=== PATIENT | female | born 1950 | race Caucasian/White ===

== ENCOUNTER → 2023-08-22 | Outpatient (CLI) | payer MEDICARE, OTHER ==
[~2023-08-22] MED LIST: ATORVASTATIN CA40 MG PO; CALCIUM 600 MG1 EACH PO; CARBIDOPA/LEVODOPA PO; LOSARTAN POTASS25 MG PO; MYSOLINE50 M1 PO; NS 500 ML IV ONE; OMEGA-3 FISH1000 MG PO; PREGABALIN50 MG PO; PROPRANOLOL HCL60 M3 PO; SOLIFENACIN SUC10 MG PO; STIOLTO RESPIMAT4 GM IH; SYNTHROID0.05 MG PO; TRULICITY1.5 MG/0.5 SC; VITAMIN D325 MC2 PO
[2023-08-22 15:12] LABS: HEMATOCRIT 53.5 % (37.0-47.0); HEMOGLOBIN 17.6 g/dL (12.5-16.0); MEAN PLATELET VOLUME 11.3 fl (7.4-10.4); RED BLOOD COUNT 6.07 M/mm3 (4.10-5.30); RED CELL DISTRIBUTION WIDTH 15.9 % (11.5-14.5); WHITE BLOOD COUNT 9.4 K/mm3 (4.8-10.8)
== END ==
LOC: LAB 14:34
PROVIDERS: Internal Medicine
DX: D45 Polycythemia vera (principal)

== ENCOUNTER 2023-08-27 13:54 | Outpatient (RCR) | payer MEDICARE, OTHER ==
[2023-08-22 15:00] VITALS: BP 138/885
[2023-08-22 16:25] VITALS: BP 126/72
[~2023-08-27] VITALS: Ht 167.6 cm; Wt 122.7 kg
[2023-08-27 14:42] VITALS: BP 127/78
[2023-08-27 16:00] VITALS: BP 106/68
== END 2023-08-29 | disposition home or self-care (01) ==
LOC: AMSURD
DX: D45 Polycythemia vera (principal)
CPT/HCPCS: J7040

== ENCOUNTER → 2023-08-27 | Outpatient (CLI) | payer MEDICARE, OTHER ==
[~2023-08-27] MED LIST changes: -NS 500 ML IV ONE; +NS 500 ML IV SCH
[2023-08-27 14:29] LABS: HEMOGLOBIN 16.5 g/dL (12.5-16.0); MEAN PLATELET VOLUME 11.2 fl (7.4-10.4); RED BLOOD COUNT 5.69 M/mm3 (4.10-5.30); RED CELL DISTRIBUTION WIDTH 15.6 % (11.5-14.5); WHITE BLOOD COUNT 11.9 K/mm3 (4.8-10.8)
== END ==
LOC: LAB 13:57 → AMSURD 13:57
PROVIDERS: Internal Medicine
DX: D45 Polycythemia vera (principal)

== ENCOUNTER → 2023-09-12 | Outpatient (CLI) | payer MEDICARE, OTHER ==
[~2023-09-12] MED LIST changes: -NS 500 ML IV SCH
[2023-09-12 10:49] LABS: HEMATOCRIT 50.5 % (37.0-47.0); HEMOGLOBIN 16.2 g/dL (12.5-16.0); MEAN PLATELET VOLUME 11.2 fl (7.4-10.4); RED BLOOD COUNT 5.67 M/mm3 (4.10-5.30); RED CELL DISTRIBUTION WIDTH 14.8 % (11.5-14.5); WHITE BLOOD COUNT 10.9 K/mm3 (4.8-10.8)
== END ==
LOC: LAB 10:09
PROVIDERS: Internal Medicine
DX: D45 Polycythemia vera (principal)

== ENCOUNTER → 2023-09-19 | Outpatient (CLI) | payer MEDICARE, OTHER ==
[2023-09-19 14:14] LABS: HEMOGLOBIN 15.7 g/dL (12.5-16.0); MEAN PLATELET VOLUME 11.5 fl (7.4-10.4); RED BLOOD COUNT 5.59 M/mm3 (4.10-5.30); RED CELL DISTRIBUTION WIDTH 14.5 % (11.5-14.5)
== END ==
LOC: LAB 13:35
PROVIDERS: Internal Medicine
DX: D45 Polycythemia vera (principal)

== ENCOUNTER → 2023-10-10 | Outpatient (CLI) | payer MEDICARE, OTHER ==
[~2023-10-10] MED LIST changes: +HYDROXYURE500 MG/CAP PO
[2023-10-10 10:24] LABS: HEMATOCRIT 40.2 % (37.0-47.0); HEMOGLOBIN 12.7 g/dL (12.5-16.0); MEAN PLATELET VOLUME 10.9 fl (7.4-10.4); RED BLOOD COUNT 4.66 M/mm3 (4.10-5.30); RED CELL DISTRIBUTION WIDTH 14.5 % (11.5-14.5); WHITE BLOOD COUNT 9.8 K/mm3 (4.8-10.8)
== END ==
LOC: LAB 09:52
PROVIDERS: Internal Medicine
DX: D45 Polycythemia vera (principal)

== ENCOUNTER → 2024-04-20 | Outpatient (CLI) | payer MEDICARE, OTHER ==
[~2024-04-20] VITALS: Ht 167.6 cm; Wt 122.7 kg
[~2024-04-20] MED LIST changes: +ADULT ASPIRIN R81 MG PO; +EDECRIN25 MG PO; +GENTLE LAXATIVE5 M1 PO; +NS 500 ML IV SCH; +RT ALBUTEROL CC18 GM IH; +SENNA-LAX8.6 MG PO; +TRAMADOL 50 MG TAB PO
[2024-04-20 09:56] VITALS: BP 127/79
[2024-04-20 10:25] LABS: HEMATOCRIT 46.7 % (37.0-47.0); HEMOGLOBIN 14.7 g/dL (12.5-16.0)
[2024-04-20 11:43] VITALS: BP 124/73
== END ==
LOC: AMSURD 09:41 → LAB 09:41
PROVIDERS: Internal Medicine
DX: D45 Polycythemia vera (principal)
CPT/HCPCS: J7040